=== PATIENT | female | born 1935 | race Caucasian/White ===

== ENCOUNTER → 2016-11-25 | Outpatient (CLI) | payer MEDICARE, OTHER ==
[~2016-11-25] MED LIST: ALDACTONE25 MG PO; ASPIRIN LO-DOSE81 MG PO; CALCIUM 500 +1 EAC3 PO; CELEXA10 MG PO; CELEXA20 MG PO; COLACE100 MG PO; DULCOLAX10 MG R; EXELON PATCH 99.5 MG TOP; GENTEAL GEL DRO15 ML OPHTH; LASIX20 MG PO; LEVOTHROID (SY88 MCG PO; LIPITOR20 M1 PO; LYRICA 50MG CAP50 MG PO; MEDI PADS1 EACH TOP; MIDODRINE HCL2.5 MG PO; MIDODRINE HCL5 MG PO; MILK OF MA400 MG/5 M PO; MIRALAX PO527 GM/BOT PO; NORCO 5-325 MG1 TAB PO; PRADAXA150 MG PO; RYTARY ER 48.71 EACH PO; TYLENOL325 MG PO; VITAMIN D1000 UNIT PO; XANAX0.25 MG PO
== END | disposition disaster alternative care site (69) ==
LOC: GAMB 21:03
DX: R06.82 Tachypnea, not elsewhere classified (principal); R00.0 Tachycardia, unspecified; Z86.59 Personal history of other mental and behavioral disorders; Z79.2 Long term (current) use of antibiotics; Z79.899 Other long term (current) drug therapy
CPT/HCPCS: A0422; A0425; A0427; J2060; J2405